=== PATIENT | female | born 1935 | race African-American/Black ===

== ENCOUNTER 2016-11-30 14:35 | Inpatient (IN) | payer MEDICARE, BC ==
[~2016-11-30] VITALS: Ht 152.4 cm; Wt 65.9 kg
[~2016-11-30 14:35] MED LIST changes: -AZIT1PAC PO; -BENZ100C PO; -FLUT9.9S NS; -IOHEXOL 300 MG/ML 75 ML VIAL. IV ONE; -PRED-220 PO; -RIVA15TA PO
[2016-11-30 14:50] VITALS: BP 133/80
[2016-11-30 15:00] VITALS: BP 153/80
[2016-11-30 17:00] LABS: ALBUMIN 3.6 g/dL (3.4-5.0); ALBUMIN/GLOBULIN RATIO 1.1 (1.0-1.7); CALCIUM 8.3 mg/dL (8.5-10.1); CREATININE 0.9 mg/dL (0.6-1.0); GFR 72.7; POTASSIUM 3.6 mmol/L (3.5-5.1); TOTAL BILIRUBIN 0.4 mg/dL (0.2-1.0)
[2016-11-30 17:16] LABS: BASO % 0 % (0-3); EOS % 0 % (0-3); HEMATOCRIT 36.8 % (36.0-47.0); LYMPH # 0.9 x10^3/uL (1.0-4.8); LYMPH % 13 % (24-48); MEAN CORPUSCULAR HEMOGLOBIN 26 pg (25-35); MEAN CORPUSCULAR HGB CONC 33 g/dL (31-37); MEAN CORPUSCULAR VOLUME 81 fL (79-100); MONO # 0.3 x10^3/uL (0.0-1.1); MONO % 4 % (0-9); NEUT # 6.1 x10^3uL (1.8-7.7); NEUT % 83 % (31-73); PLATELET COUNT 146 x10^3/uL (140-400); RED BLOOD COUNT 4.56 x10^6/uL (3.50-5.40); RED CELL DISTRIBUTION WIDTH 14.5 % (11.5-14.5); WHITE BLOOD COUNT 7.4 x10^3/uL (4.0-11.0)
[2016-11-30] MEDS ORDERED: AZIT1PAC PO (17:20)
[2016-11-30] MEDS ORDERED: PRED-220 PO (17:20)
[2016-11-30] MEDS ORDERED: BENZ100C PO (17:20)
[2016-11-30] MEDS ORDERED: FLUT9.9S NS (17:20)
[2016-11-30] MEDS ORDERED: ACETAMINOPHEN 500 MG TABLET PO PRN (18:15)
[2016-11-30] MEDS ORDERED: METOPROLOL TART IMMED RELEASE 25 MG TABLET PO SCH (18:15)
--- NOTE | 2016-11-30 18:15 | RAD ---
Ultrasound bilateral lower extremity Indication: Elevated d-dimer Technique: Multiple real-time grayscale images were obtained over the bilateral lower extremities with use of color Doppler imaging and spectral analysis. Static images were submitted for interpretation. Findings: There is no evidence for deep venous thrombosis. There is normal color fill-in on Doppler images. There is also normal response to compression and augmentation deep venous system. No evidence for mass or fluid collection. Impression: No evidence for deep venous thrombosis. Electronically signed by: Jose Duran MD (11/30/2016 6:12 PM) [facility]
[2016-11-30 19:00] VITALS: BP 127/70
[2016-11-30] MEDS: METOPROLOL TART IMMED RELEASE 25 MG TABLET PO SCH (20:11)
[2016-11-30] MEDS: ENOXAPARIN ** NOTE DOSE ** SYRINGE SQ SCH (20:12)
[2016-11-30 20:29] LABS: BILIRUBIN,URINE NEG (NEG); CLARITY,URINE HAZY; COLOR,URINE YELLOW; GLUCOSE,URINE NEG (NEG); NITRITE,URINE NEG (NEG); UROBILINOGEN,URINE 1 mg/dL (0.2 mg/dL)
[2016-11-30 20:31] LABS: BACTERIA,URINE MOD /HPF (0-FEW); SQUAMOUS EPITHELIAL CELL,UR MANY /LPF
[2016-12-01 02:44] VITALS: BP 130/63
[2016-12-01 06:24] LABS: BASO % 1 % (0-3); EOS # 0.1 x10^3/uL (0.0-0.7); EOS % 1 % (0-3); HEMATOCRIT 35.7 % (36.0-47.0); HEMOGLOBIN 11.6 g/dL (12.0-15.5); LYMPH # 2.6 x10^3/uL (1.0-4.8); LYMPH % 33 % (24-48); MEAN CORPUSCULAR HEMOGLOBIN 26 pg (25-35); MEAN CORPUSCULAR HGB CONC 33 g/dL (31-37); MEAN CORPUSCULAR VOLUME 81 fL (79-100); MONO # 0.4 x10^3/uL (0.0-1.1); MONO % 5 % (0-9); NEUT # 4.7 x10^3uL (1.8-7.7); NEUT % 60 % (31-73); PLATELET COUNT 139 x10^3/uL (140-400); RED BLOOD COUNT 4.44 x10^6/uL (3.50-5.40); RED CELL DISTRIBUTION WIDTH 14.4 % (11.5-14.5); WHITE BLOOD COUNT 7.8 x10^3/uL (4.0-11.0)
[2016-12-01 06:25] LABS: CALCIUM 8.5 mg/dL (8.5-10.1); CREATININE 0.7 mg/dL (0.6-1.0); GFR 97.2; POTASSIUM 3.7 mmol/L (3.5-5.1)
[2016-12-01 06:39] VITALS: BP 153/76
[2016-12-01] MEDS ORDERED: CALCIUM CARB/VIT D3 500/200 TABLET PO SCH (08:00)
[2016-12-01] MEDS: METOPROLOL TART IMMED RELEASE 25 MG TABLET PO SCH (08:50)
[2016-12-01] MEDS: ENOXAPARIN ** NOTE DOSE ** SYRINGE SQ SCH (08:52)
[2016-12-01] MEDS ORDERED: METOPROLOL TART IMMED RELEASE 25 MG TABLET PO SCH (09:00)
[2016-12-01] MEDS ORDERED: FLUTICASONE 50MCG/NASAL SPRAY 16GM BOTTLE. NS SCH (09:00)
[2016-12-01] MEDS ORDERED: TRIAMTERENE/HCTZ 37.5/25MG TABLET. PO SCH (09:00)
[2016-12-01 11:21] VITALS: BP 121/64
[2016-12-01] MEDS ORDERED: RIVA15TA PO (12:56)
[2016-12-01] MEDS ORDERED: RIVAROXABAN 15 MG TABLET. PO SCH ×2 (13:00→17:00)
--- NOTE | 2016-12-02 00:09 | ACF ---
Admission Criteria Forms PLEURAL EFFUSION Clinical Indications for Admission to Inpatient Care (Place 'X' for any and all applicable criteria): Admission is indicated for 1 or more of the following (1)(2)(3): [ ]I. Pneumonia-related effusion requiring drainage as indicated by 1 or more of the following [A]: [ ]a) Large pleural effusion (symptomatic or greater than one-half of hemithorax) [ ]b) Loculated effusion [ ]c) Pleural fluid analysis results, including ANY ONE of the following: [ ]i) Positive Gram stain or culture for bacteria [ ]ii) Pus [ ]iii) pH less than 7.20 [ ]d) Parapneumonic effusion with glucose less than 60 mg/dL (3.33 mmol/L) [x]II. Inpatient admission required rather than observation care (Also use Pleural Effusion: Observation Care criteria as appropriate) because of 1 or more of the following: [ ]1) Hemodynamic instability [ ]2) Respiratory findings (Tachypnea, dyspnea) that persist despite observation care treatment [ ]3) Hypoxemia or hypercapnia that persists despite observation care treatment [ ]4) Complication of drainage (e.g., pneumothorax) that requires inpatient care [ ]5) Etiology that requires inpatient care (e.g., pulmonary embolism, trauma) [ ]6) Severe pain requiring acute inpatient management [ ]7) Chest tube placement with active evacuation (eg, suction, drainage) [ ]8) Pulmonary artery catheter monitoring [ ]9) Epidural analgesia(7) [ ]10) Immediate inpatient surgery [x]11) Other condition, treatment, or monitoring requiring inpatient admission [ ]III. Hemothorax [ ]IV. Empyema [ ]V. Pleural effusion with concomitant pneumothorax [ ]. Recurrent or malignant pleural effusion requiring pleurodesis (4) [ ]VII. Respiratory distress Extended stay beyond goal length of stay may be needed for (27)(28): [ ]a) Empyema or complicated parapneumonic effusion (24)(29) [ ]b) Malignant pleural effusion (4) [ ]c) Pleural effusion due to trauma or perforated esophagus [ ]d) Pleural effusion due to pulmonary embolism (30) [ ]e) Clinically significant re-expansion pulmonary edema [ ]f) Hemothorax [ ]g) Renal failure [ ]h) Complications of thoracentesis, thoracostomy tube, or pleural cath. placement [ ]j) Trapped lung (e.g., benign or malignant thickened pleura preventing lung re-expansion) (31) [ ]i) Underlying etiology necessitates ongoing inpatient care (e.g., pneumonia, heart failure, malignancy) The original [facility] [employer] content created by [facility] has been revised. The portions of the content which have been revised are identified through the use of italic text, and [facility] has neither reviewed nor approved the modified material. All other unmodified content is copyright [facility]. Please see references footnoted in the original [facility] edition 2014 Admission Criteria Met?: Yes FAROOQ PADGETT Dec 02, 2016 00:09
--- NOTE | 2016-12-26 15:19 | SSS ---
ADMIT DATE: 12/01/2016 HOSPITAL COURSE: An 81-year-old female came in with increased shortness of breath and coughing. The patient was admitted to the hospital for bilateral pulmonary emboli. The patient had had a CTA of her chest on day of admission, which demonstrated pulmonary emboli involving the segmental and subsegmental distribution of the right middle, lower lobes and also the left lobes, so she was admitted, placed on anticoagulation. She made good progress during the rest of her hospitalization. She had no complications from that situation and she felt much better. She was discharged home and followed up as an outpatient. See MRAD. Decreased activity. IMPRESSION: Bilateral pulmonary emboli, cough. The patient will follow up in the office. PLAN: As above. MARTIN JIMENEZ MD DR: SHELLI/lauren JOB#: [id number] / [id number]
== END 2016-12-01 13:28 | disposition home or self-care (01) | DRG 176 ==
LOC: 1 SOUTH 14:35
PROVIDERS: ADMIT Family Medicine; ATTEND Family Medicine
DX: I26.99 Other pulmonary embolism without acute cor pulmonale (principal); M19.90 Unspecified osteoarthritis, unspecified site; Z96.653 Presence of artificial knee joint, bilateral; I10 Essential (primary) hypertension; Z90.710 Acquired absence of both cervix and uterus; Z90.49 Acquired absence of other specified parts of digestive tract; Z88.8 Allergy status to other drugs, medicaments and biological substances; E78.00 Pure hypercholesterolemia, unspecified; J30.2 Other seasonal allergic rhinitis; J40 Bronchitis, not specified as acute or chronic; I51.7 Cardiomegaly
CPT/HCPCS: 36415; 71260; 80048; 80053; 81001; 83605; 83880; 85027; 85610; 87086; 93970; J1650; Q9967

== ENCOUNTER → 2016-11-30 | Outpatient (CLI) | payer MEDICARE, BC ==
[2014-10-12 06:38] VITALS: BP 126/88
[~2016-11-30] MED LIST: AZIT1PAC PO; BENZ100C PO; CALCIUM WITH VIT D PO; FLUT9.9S NS; Fentanyl TD; IOHEXOL 300 MG/ML 75 ML VIAL. IV ONE; LEVO250T7 PO; NEBI5TAB2 PO; PRED-220 PO; RIVA15TA PO; TRIA1TAB3 PO
--- NOTE | 2016-11-30 14:09 | RAD ---
CT chest with contrast 11/30/2016 at 1133 hours Indication: Abnormal chest radiograph Comparison: Abdomen/pelvis 10/11/2014, CT chest/abdomen/pelvis 02/03/2009 Technique: Multiple axial CT images of the chest were obtained after the administration of intravenous contrast. 75 mL Omnipaque 300 was administered. Coronal and sagittal reformats are provided. Findings: There is adequate opacification of the pulmonary arterial system. Filling defects are identified in the segmental and subsegmental distribution of the left upper lobe, left lower lobe, right lower lobe, right middle lobe and right upper lobe pulmonary arteries. No filling defects are identified and the central pulmonary artery or right main and left pulmonary arteries. Heart size is normal in appearance. No significant bowing of the interventricular septum to suggest heartstring. No significant right ventricular hypertrophy. No pericardial effusions. There is ground glass attenuation in the left lower lobe centrally which may reflect subsegmental atelectasis or an infectious/inflammatory process. No evidence for pulmonary infarct. No suspicious pulmonary nodules are identified. There is less upper abdomen is normal. Moderate degenerative changes of the thoracic spine are noted. No spinal canal stenosis. Impression: Findings are compatible with pulmonary emboli involving the segmental and subsegmental distribution of the right upper, middle and lower lobes as well as the left upper and lower lobes. No evidence for pulmonary infarct or right heart strain. Critical results were discussed with KVNG Hi at 2:00 PM on 11/30/[address] Graham. RS Compliance Statement: One or more of the following individualized dose reduction techniques were utilized for this examination: 1. Automated exposure control 2. Adjustment of the mA and/or kV according to patient size 3. Use of iterative reconstruction technique
== END | disposition home or self-care (01) ==
LOC: CT 10:01
PROVIDERS: ATTEND Nurse Practitioner Family
DX: R93.8 Abnormal findings on diagnostic imaging of other specified body structures (principal); M47.894 Other spondylosis, thoracic region; I10 Essential (primary) hypertension; F17.200 Nicotine dependence, unspecified, uncomplicated; Z79.01 Long term (current) use of anticoagulants
CPT/HCPCS: 71260; Q9967

== ENCOUNTER → 2017-12-12 | Outpatient (CLI) | payer MEDICARE, BC ==
[~2017-12-12] MED LIST changes: +AZIT1PAC PO; +BENZ100C PO; +BUPIVACAINE MPF 0.25% 10 ML VIAL. ONE; +FLUT9.9S NS; +PRED-220 PO; +RIVA15TA PO; +methylPREDNISolone ACETATE 40 MG/ML VIAL. ONE
== END | disposition home or self-care (01) ==
LOC: SURG 14:34
PROVIDERS: ATTEND Anesthesiology
DX: M79.1 Myalgia (principal); Z88.5 Allergy status to narcotic agent; E78.00 Pure hypercholesterolemia, unspecified; Z86.711 Personal history of pulmonary embolism; Z90.49 Acquired absence of other specified parts of digestive tract; Z90.710 Acquired absence of both cervix and uterus; Z87.440 Personal history of urinary (tract) infections; M19.90 Unspecified osteoarthritis, unspecified site; M50.30 Other cervical disc degeneration, unspecified cervical region; Z96.653 Presence of artificial knee joint, bilateral; M41.9 Scoliosis, unspecified; Z82.49 Family history of ischemic heart disease and other diseases of the circulatory system; Z79.899 Other long term (current) drug therapy; Z98.42 Cataract extraction status, left eye; Z98.41 Cataract extraction status, right eye; Z96.1 Presence of intraocular lens; Z98.890 Other specified postprocedural states
CPT/HCPCS: 20553; J1030; J3490; 20552

== ENCOUNTER → 2018-04-24 | Outpatient (CLI) | payer MEDICARE, BC ==
[~2018-04-24] MED LIST changes: -BUPIVACAINE MPF 0.25% 10 ML VIAL. ONE; +BUPIVACAINE MPF 0.25% 30 ML VIAL. ONE; -methylPREDNISolone ACETATE 40 MG/ML VIAL. ONE
== END | disposition home or self-care (01) ==
LOC: SURG 13:59
PROVIDERS: ATTEND Anesthesiology
DX: M79.18 Myalgia, other site (principal); Z88.6 Allergy status to analgesic agent; Z79.899 Other long term (current) drug therapy
CPT/HCPCS: 20552; J3490; 20553

== ENCOUNTER → 2018-05-04 | Outpatient (CLI) | payer MEDICARE, BC ==
[~2018-05-04] MED LIST changes: -BUPIVACAINE MPF 0.25% 30 ML VIAL. ONE
[2018-05-04 10:57] LABS: ALBUMIN 3.7 g/dL (3.4-5.0); CALCIUM 8.9 mg/dL (8.5-10.1); GFR 64.1; POTASSIUM 3.9 mmol/L (3.5-5.1); TOTAL BILIRUBIN 0.6 mg/dL (0.2-1.0); TOTAL PROTEIN 7.3 g/dL (6.4-8.2)
== END | disposition home or self-care (01) ==
LOC: LAB 09:15
PROVIDERS: ATTEND Internal Medicine Interventional Cardiology
DX: I10 Essential (primary) hypertension (principal); E78.5 Hyperlipidemia, unspecified
CPT/HCPCS: 36415; 80053; 80061